=== PATIENT | female | born 1995 | race Caucasian/White ===

== ENCOUNTER 2018-09-22 15:08 | Emergency (ER) | payer MEDICAID ==
[~2018-09-22] VITALS: Ht 162.6 cm; Wt 48.7 kg
[~2018-09-22 15:08] MED LIST: ASPI-496 PO
[2018-09-22 15:10] VITALS: BP 129/70
[2018-09-22] MEDS ORDERED: BACITRACIN ZINC OINT 500U/GM, 0.9 GM ONE (15:26)
== END 2018-09-22 15:48 | disposition home or self-care (01) ==
LOC: ED 15:36
DX: L03.012 Cellulitis of left finger (principal)
CPT/HCPCS: 99283